=== PATIENT | female | born 1995 | race Caucasian/White ===

== ENCOUNTER 2018-03-19 22:16 | Emergency (ER) | payer OTHER ==
[~2018-03-19] VITALS: Ht 162.6 cm; Wt 62.1 kg
[2018-03-19 22:24] VITALS: BP 142/92
[2018-03-19] MEDS ORDERED: VENTOLIN HFA 1818 GM INH (22:32)
[2018-03-19] MEDS ORDERED: TESSALON PERLE100 MG PO (22:32)
== END 2018-03-19 22:38 | disposition home or self-care (01) ==
LOC: M.ERS 22:16
DX: J40 Bronchitis, not specified as acute or chronic (principal); R19.7 Diarrhea, unspecified; F17.210 Nicotine dependence, cigarettes, uncomplicated

== ENCOUNTER 2018-11-25 20:53 | Emergency (ER) | payer OTHER ==
[~2018-11-25] VITALS: Ht 162.6 cm; Wt 54.4 kg
[~2018-11-25 20:53] MED LIST: TESSALON PERLE100 MG PO; VENTOLIN HFA 1818 GM INH
[2018-11-25] MEDS ORDERED: AMOXIL 875 MG875 M1 PO (22:13)
[2018-11-25 22:23] VITALS: BP 120/66
== END 2018-11-25 22:23 | disposition home or self-care (01) ==
LOC: M.ERS 20:53
DX: H66.93 Otitis media, unspecified, bilateral (principal)

== ENCOUNTER 2019-08-06 21:05 | Emergency (ER) | payer OTHER ==
[~2019-08-06] VITALS: Ht 160 cm; Wt 52.2 kg
[~2019-08-06 21:05] MED LIST changes: +AMOXIL 875 MG875 M1 PO
[2019-08-06 21:33] LABS: ABSOLUTE EOSINOPHILS 0.1 thou/uL (0.0-0.7); ABSOLUTE MONOCYTES 0.6 thou/uL (0.0-1.2); ABSOLUTE NEUTROPHILS 5.2 thou/uL (1.6-8.1); BASOPHILS 0.5 %; EOSINOPHILS 1.1 %; HEMOGLOBIN 14.6 gm/dL (12.0-15.0); LYMPHOCYTES 25.9 %; MCH 29.1 pg (26.0-34.0); MCHC 33.9 g/dL (28.0-37.0); MCV 85.7 fL (80.0-100.0); MPV 7.7 fl. (7.2-11.1); NUCLEATED RBCS 0 /100WBC; PLATELET COUNT* 327 thou/uL (150-400); POLYS 65.5 %; RBC 5.02 mil/uL (4.20-5.00); RDW-CV 13.5 % (10.5-14.5); WBC 7.9 thou/uL (4.0-11.0)
[2019-08-06 21:41] LABS: CALCIUM 8.8 mg/dL (8.5-10.1); CREATININE 0.9 mg/dL (0.6-1.3); POTASSIUM 3.3 mmol/L (3.5-5.1)
[2019-08-06 21:41] LABS: URINE BLOOD TRACE (Negative); URINE CLARITY SL CLOUDY; URINE COLOR YELLOW; URINE GLUCOSE-RANDOM NEGATIVE (Negative); URINE KETONES 1+ (Negative); URINE LEUKOCYTES-REFLEX NEGATIVE (Negative); URINE NITRITE-REFLEX NEGATIVE (Negative); URINE PROTEIN TRACE (Negative); URINE SPECIFIC GRAVITY >= 1.030 (1.005-1.030); URINE UROBILINOGEN 0.2 E.U./dl (0.2-1.0)
[2019-08-06 21:43] LABS: URINE BILIRUBIN 1+ (Negative)
[2019-08-06 21:44] LABS: ICTOTEST (BILI CONFIRMATORY) Negative (Negative)
[2019-08-06 21:46] LABS: ALBUMIN 4.3 g/dL (3.4-5.0); TOTAL BILIRUBIN 0.7 mg/dL (<0.1-1.0); TOTAL PROTEIN 7.9 g/dL (6.4-8.2)
[2019-08-06 21:48] LABS: AMP/METHAMP Negative (Negative); BARBITURATES Negative (Negative); BENZODIAZEPINES Negative (Negative); COCAINE Negative (Negative); METHADONE Negative (Negative); OPIATES Negative (Negative); PCP Negative (Negative); THC POSITIVE (Negative)
[2019-08-06 21:50] LABS: SALICYLATE < 2.8 mg/dL (2.8-20.0)
[2019-08-06 21:53] LABS: ACETAMINOPHEN < 2 ug/mL (10-30); ALCOHOL < 10 mg/dL (<10)
[2019-08-07 00:03] VITALS: BP 149/89
== END 2019-08-07 00:03 | disposition home or self-care (01) ==
LOC: M.ERS 21:05
PROVIDERS: Emergency Medicine
DX: F32.9 Major depressive disorder, single episode, unspecified (principal)